=== PATIENT | female | born 1935 | race Caucasian/White ===

== ENCOUNTER → 2016-08-14 | Day surgery (SDC) | payer MEDICARE ==
[~2016-08-14] VITALS: Ht 154.9 cm; Wt 91.6 kg
[~2016-08-14] MED LIST: ALDA50TA2 PO; ASPI1TAB PO; DITR1TAB PO; GLUC1CAP9 PO; HYDROmorphone HCL 2 MG/ML 1ML VIAL (J1170) As Ordered ONE; LEVO75TA4 PO; LIDOCAINE 2% INJ 100 MG/5 ML SDV (FOR ANES.) As Ordered ONE; LIDOCAINE W/EPINEPHRINE 1% 20ML VIAL As Ordered ONE; LIDOCAINE W/EPINEPHRINE 1% 20ML VIAL XX ONE; LIPI20TA PO; LISI-538 PO; LR 1,000 ML IV SCH; MEPERIDINE INJ 25 MG/ML VIAL (J2175) IV PRN; METOCLOPRAMIDE INJ 10MG/2ML VIAL (J2765) IV PRN; MIDAZOLAM INJ 2 MG/2 ML VIAL (J2250) As Ordered ONE; OMEP20CA3 PO; ONDANSETRON 4MG/2ML VIAL (J2405) As Ordered ONE; ONDANSETRON 4MG/2ML VIAL (J2405) IV PRN; PERCOCET 5MG/325MG TAB PO PRN; PHENYLephrine HCL 500 MCG/5 ML (100MCG/ML) SYRINGE (J2370) As Ordered ONE; PROPOFOL 200 MG/20 ML VIAL As Ordered ONE; ROCURONIUM BROMIDE 50 MG/5 ML VIAL As Ordered ONE; SUCCINYLCHOLINE 100 MG/5 ML SYRINGE (J0330) As Ordered ONE; TRAM50TA2 PO; TYLE500T78 PO; VITA50003 PO; [UNRECOGNIZED DRUG - CODE] PO; dexameTHASONE 4 MG/ML 1ML VIAL (J1100) IV ONE; ePHEDrine SULFATE 25 MG/5 ML(5MG/ML) SYRINGE As Ordered ONE; fentaNYL 100 MCG/2 ML INJECTION (J3010) IV PRN; fentaNYL 250 MCG/5 ML INJECTION (J3010) As Ordered ONE
[2016-08-14 17:35] VITALS: BP 112/56
--- NOTE | 2016-08-19 08:30 | RO ---
DATE OF PROCEDURE: 08/14/2016 PREPROCEDURE DIAGNOSIS: Primary hypoparathyroidism. POSTPROCEDURE DIAGNOSIS: Primary hypoparathyroidism. PROCEDURE: Excision of the right inferior parathyroid gland, NIM3 intraoperative neuromonitoring and flexible laryngoscopy. SURGEON: Dr. Freddie Astorga [employer]OR [employer]: Ankush Rosen MD, [facility]. ANESTHESIA: General with use of paralytic. CLINICAL PREAMBLE: This [id number] women presented to the office with history of elevated parathyroid gland hormone as well as ionized calcium. Ultrasound of the thyroid bed area revealed enlarged right inferior parathyroid gland. A sestamibi scan was negative. Management options including an excision of the parathyroid gland from right inferior area of the neck have been discussed. The understood and consented to the procedure. DESCRIPTION OF OPERATION: Patient was identified in preoperative holding and brought to the operating room in stable condition. In supine position on the operating room table, the patient received general anesthesia followed by oral tracheal intubation with NIM3 compatible endotracheal tube without incident. She was prepped and draped in the usual fashion for the procedure. The ground electrodes were connected to the sternal notch area. The test electrode and the ground electrodes were then connected to the NIM3 monitor. Good electrical signals were obtained when tapping the larynx. At this time, a curvilinear incision was fashioned in the lower neck region. The incision was infiltrated with 1% lidocaine with 1:100,000 epinephrine. Incision was made through the skin, subcutaneous tissue and platysma muscle. The strap muscles were identified and then dissected to allow lateral retraction to expose the right thyroid capsule. Dissection was carried out laterally to identify the carotid sheath. That incision was carried inferiorly down to the inlet of the mediastinum. The recurrent laryngeal nerve was identified in the tracheal esophageal groove which was carefully preserved throughout the entire case. An enlarged perihilar gland was noted in the right inferior quadrant of the thyroid bed area. This was successfully excised and sent for pathology for frozen section. It was reported to be parathyroid tissue. The parathyroid hormone drawn 10 minutes after the excision showed a level of 77, preop level of the parathyroid hormone was 89. At this time, a decision was made to explore the right inferior thyroid bed again. Additional tissue was taken from the right inferior parathyroid gland excision site for additional tissue to ensure complete excision. A small Hemoclip was placed as a . Complete hemostasis was observed. Leoncio powder was applied to the surgical site. The right recurrent laryngeal nerve was found to be stimulatable at the end of the case. Strap muscles were then reapproximated in the midline. The skin was closed using #3-0 Vicryl for deep layer and #5-0 Monocryl for subcuticular suturing technique to close the skin layer. Steri-Strips were applied followed by application of the Tegaderm. At the end of the procedure, sponge and instruments are correct. No complication was successfully extubated in the operating room. Flexible laryngoscopy was performed immediately postop via the right nostril. Both were visualized and found to be mobile and symmetrical in motion. She was brought to the postop area in stable condition without any evidence of stridor or hoarseness.
== END | disposition home or self-care (01) ==
LOC: M SDC 09:31
PROVIDERS: ATTEND Otolaryngology
DX: E21.3 Hyperparathyroidism, unspecified (principal); I10 Essential (primary) hypertension; E03.9 Hypothyroidism, unspecified; M06.9 Rheumatoid arthritis, unspecified
CPT/HCPCS: 31575; 36415; 60500; 83970; 88305; 88331; J0330; J1100; J1170; J2250; J2370; J2405; J3010

== ENCOUNTER → 2016-08-21 | Outpatient (CLI) | payer MEDICARE ==
[~2016-08-21] MED LIST changes: -HYDROmorphone HCL 2 MG/ML 1ML VIAL (J1170) As Ordered ONE; -LIDOCAINE 2% INJ 100 MG/5 ML SDV (FOR ANES.) As Ordered ONE; -LIDOCAINE W/EPINEPHRINE 1% 20ML VIAL As Ordered ONE; -LIDOCAINE W/EPINEPHRINE 1% 20ML VIAL XX ONE; -LR 1,000 ML IV SCH; -MEPERIDINE INJ 25 MG/ML VIAL (J2175) IV PRN; -METOCLOPRAMIDE INJ 10MG/2ML VIAL (J2765) IV PRN; -MIDAZOLAM INJ 2 MG/2 ML VIAL (J2250) As Ordered ONE; -ONDANSETRON 4MG/2ML VIAL (J2405) As Ordered ONE; -ONDANSETRON 4MG/2ML VIAL (J2405) IV PRN; -PERCOCET 5MG/325MG TAB PO PRN; -PHENYLephrine HCL 500 MCG/5 ML (100MCG/ML) SYRINGE (J2370) As Ordered ONE; -PROPOFOL 200 MG/20 ML VIAL As Ordered ONE; -ROCURONIUM BROMIDE 50 MG/5 ML VIAL As Ordered ONE; -SUCCINYLCHOLINE 100 MG/5 ML SYRINGE (J0330) As Ordered ONE; -dexameTHASONE 4 MG/ML 1ML VIAL (J1100) IV ONE; -ePHEDrine SULFATE 25 MG/5 ML(5MG/ML) SYRINGE As Ordered ONE; -fentaNYL 100 MCG/2 ML INJECTION (J3010) IV PRN; -fentaNYL 250 MCG/5 ML INJECTION (J3010) As Ordered ONE
[2016-08-21 13:16] LABS: IONIZED CALCIUM 4.7 MG/DL (4.5-5.3)
== END ==
LOC: M LAB 12:53
PROVIDERS: ATTEND Otolaryngology
DX: E21.3 Hyperparathyroidism, unspecified (principal)

== ENCOUNTER → 2019-07-28 | Outpatient (CLI) | payer MEDICARE ==
[~2019-07-28] MED LIST changes: -ASPI1TAB PO; +ASPI81TA26 PO; +OMEP1CAP73 PO; -OMEP20CA3 PO; -VITA50003 PO; +VITA50005 PO
--- NOTE | 2019-07-28 12:41 | REP ---
PARATHYROID NUCLEAR SCINTIGRAPHY: Sestamibi scan with SPECT imaging. HISTORY: Primary hyperparathyroidism. TECHNIQUE: 27.5 mCi of technetium 99m sestamibi is injected. 15 and 3-hour delayed planar images are acquired. In addition a SPECT acquisition is acquired. Reformatted scans are generated in axial coronal and sagittal planes. FINDINGS: Expected submandibular parotid salivary gland uptake is seen. Faint uptake is seen in the thyroid lobes bilaterally on 15-minute images. Three hour delayed images demonstrate washout from the thyroid lobes. There is no evidence of residual focus of increased uptake in the neck soft tissues or mediastinal soft tissues to suggest parathyroid adenoma. SPECT tomographic images and cine display of the SPECT data show no additional finding. IMPRESSION: Negative parathyroid nuclear scintigraphy. Electronically Signed by Juwan Feliz MD 07/28/2019 01:33 P
== END ==
LOC: M RAD 07:55
PROVIDERS: ATTEND Internal Medicine Nephrology
DX: E21.0 Primary hyperparathyroidism (principal)
CPT/HCPCS: 78070; 78803; A9500

== ENCOUNTER → 2021-08-28 | Outpatient (CLI) | payer MEDICARE ==
[~2021-08-28] MED LIST changes: -LISI-538 PO; +LISI20TA33 PO
[2021-08-28 16:32] LABS: HEMATOCRIT 39.7 % (36.0-47.0); HEMOGLOBIN 12.2 g/dl (12.0-15.5); MEAN CORPUSCULAR HEMOGLOBIN 28.3 pg (27.0-33.0); MEAN CORPUSCULAR HGB CONC 30.7 g/dl (32.0-36.5); MEAN CORPUSCULAR VOLUME 92.1 fl (80.0-96.0); PLATELET COUNT, AUTOMATED 324 10^3/uL (150-450); RED BLOOD COUNT 4.31 10^6/uL (4.00-5.40); WHITE BLOOD COUNT 9.6 10^3/uL (4.0-10.0)
[2021-08-28 16:49] LABS: CREATININE FOR GFR 1.14 MG/DL (0.55-1.30); GLOMERULAR FILTRATION RATE 48.1 (>32); POTASSIUM SERUM 4.2 MEQ/L (3.5-5.1)
[2021-08-28 17:05] LABS: TOTAL 25(OH) VITAMIN D 47.2 NG/ML (30.0-100.0)
== END ==
LOC: M LAB 15:38
PROVIDERS: ATTEND Otolaryngology
DX: E21.3 Hyperparathyroidism, unspecified (principal)

== ENCOUNTER → 2021-10-15 | Outpatient (CLI) | payer MEDICARE | LOC: M RAD 09:18 | PROVIDERS: ATTEND Otolaryngology | DX: E05.90 Thyrotoxicosis, unspecified without thyrotoxic crisis or storm (principal) | CPT/HCPCS: 78070; 78803; A9500 ==